=== PATIENT | male | born 1980 | race Caucasian/White ===

== ENCOUNTER 2023-11-30 14:29 | Emergency (ER) | payer BC, SELFPAY ==
[2023-11-30 14:37] VITALS: BP 196/105
[2023-11-30 14:47] VITALS: BP 178/107
[2023-11-30 14:54] LABS: % Immature Granulocytes 0.3 % (0-0.5); % Lymphocytes 35.4 % (20.5-51.1); % Monocytes 12.2 % (1.7-9.3); % Neutrophils 48.1 % (42.2-75.2); Absolute Basophils 0.1 10^3/uL (0-0.2); Absolute Eosinophils 0.3 10^3/uL (0-0.7); Absolute Lymphocytes 3.3 10^3/uL (1.2-3.4); Absolute Monocytes 1.1 10^3/uL (0.1-0.6); Absolute Neutrophils 4.5 10^3/uL (1.4-6.5); Hemoglobin 15.2 g/dL (13.0-18.0); Mean Corp Hgb Conc. 35.3 g/dL (33.0-37.0); Mean Corpuscular Hgb 30.7 pg (27.0-31.0); Mean Corpuscular Volume 86.9 fL (80.0-94.0); Mean Platelet Volume 10.7 fL (7.4-10.4); Nucleated Red Blood Cells % 0 % (-); Platelet Count 300 10^3/uL (130-400); Red Blood Cell Count 4.95 10^6/uL (4.70-6.10); White Blood Cell Count 9.4 10^3/uL (4.8-10.8)
[2023-11-30 14:55] LABS: Urine Albumin Negative (Neg - Trace); Urine Bilirubin Negative (Negative); Urine Character Clear (Clear); Urine Color Yellow; Urine Glucose Negative (Negative); Urine Ketone Negative (Negative); Urine Leukocyte Negative (Negative); Urine Nitrite Negative (Negative); Urine Occult Blood Negative (Negative); Urine Specific Gravity 1.015 (<1.030); Urine Urobilinogen Negative (Neg - 1+); Urine pH 6.5 (5.0-9.0)
[2023-11-30 15:16] LABS: ALT (SGPT) 33 U/L (0-50); AST (SGOT) 27 U/L (17-59); Albumin 4.3 g/dl (3.5-5.0); Alkaline Phosphatase 53 U/L (38-126); Blood Urea Nitrogen 8 mg/dl (9-20); Calcium 9.8 mg/dl (8.4-10.2); Carbon Dioxide 22 mmol/L (22-30); Chloride 107 mmol/L (98-107); Glucose 95 mg/dl (70-99); Lipase 75 U/L (23-300); Sodium 135 mmol/L (135-145); Total Bilirubin 0.6 mg/dl (0.2-1.3); Total Protein 7.2 g/dl (6.3-8.2); eGFR > 60.00
[2023-11-30 15:21] LABS: Potassium 4.2 mmol/L (3.5-5.1)
[2023-11-30 16:33] VITALS: BMI 47.1
[2023-11-30] MEDS: TORADOL 30 MG IV (18:31)
--- NOTE | 2023-11-30 19:15 | ED.GENMED ---
History of Present Illness
General
Chief Complaint: Abdominal Symptoms
Source: patient
Exam Limitations: none
Time Seen by Provider: 11/30/23 16:06
Nursing documentation reviewed up to this point in time: agreed with
Travel History
Have you had any contact with someone who has COVID-19?: No
Do you have any symptoms of coronavirus? Fever > 100 degrees, chills, cough, shortness of breath, sore throat, loss of taste or smell, muscle aches, or headache?: No
History of Present Illness
History of Present Illness:
43-year-old male with past medical history of hypertension presenting to the emergency department today with concerns of right lower quadrant abdominal discomfort lower abdominal discomfort over the past 2 days. Described as achy and persisting.
Denies vomiting or changes in bowel movements. Denies urinary symptoms denies fevers chest pain shortness of breath.
Past History
Past History
ED Past Medical History: None
ED Past Surgical History: None
Social History
Tobacco: Smoker
Alcohol: Occasional
Drug: None
Personal:
Living: with family
Employment: Employed
Family History
Family History: Other (Mother with hypertension, stroke, kidney issues)
Review of Systems
Review of Systems
Allergies reviewed?: Yes
All Other Systems: ROS reviewed and negative except as documented in HPI and ROS
Phy Exam
Physical Exam
Physical Exam:
GENERAL: Alert , in no apparent distress
EYE: pupils equal and reactive
NECK: Supple, no significant adenopathy.
ENT: o/p clr, mmm.
CARDIAC: Regular rate and rhythm .
LUNGS: Clear breath sounds bilaterally, no acute respiratory distress, no wheezes/rales/rhonchi
ABDOMEN: Lower abdominal discomfort tenderness palpation throughout the lower abdomen some of the suprapubic to the left lower and right lower.
NEUROLOGICAL: Alert and oriented, no focal neuro deficits
SKIN: Warm and dry, skin intact.
MUSCULOSKELETAL: No edema, well perfused.
PSYCH: Normal and appropriate interaction.
Course
Orders/Labs/Results
Orders:
Orders
11/30/23 14:46
Complete Blood Count/With Diff Urgent
Comprehensive Metabolic Panel Urgent
Lipase Urgent
Urinalysis Reflex To Culture Urgent
Date Specimen was Collected: 11/30/23
Time Specimen was Collected: 14:38
11/30/23 16:13
CT Abd/Pel (IV only)-DH only Urgent
Comment:
Reason For Exam: rlq pain
11/30/23 18:23
Ketorolac [Toradol] 30 mg IV NOW STA
11/30/23 19:14
Amoxicillin 875 mg/Clav 125 mg [Augmentin 875 mg/125 mg] 1 tablet PO NOW STA
Abnormal Lab Results
11/30/23
14:46
MPV 10.7 H fL
(7.4-10.4)
Absolute Monos (auto) 1.1 H 10^3/uL
(0.1-0.6)
Monocytes % 12.2 H %
(1.7-9.3)
BUN 8 L mg/dl
(9-20)
11/30/23 14:46
11/30/23 14:46
Vital Signs
Initial and Last Documented VS:
Initial Vital Signs
Temp Pulse Resp BP Pulse Ox
98.7 F 86 17 196/105 99
11/30/23 14:37 11/30/23 14:37 11/30/23 14:37 11/30/23 14:37 11/30/23 14:37
Last Documented Vital Signs
Temp Pulse Resp BP Pulse Ox
98.7 F 73 17 178/107 99
11/30/23 14:37 11/30/23 14:47 11/30/23 14:37 11/30/23 14:47 11/30/23 14:37
MDM/Problems Addressed
MDM/Problems Addressed:
43-year-old male presenting to the emergency department today with concerns of lower abdominal discomfort worsening over the past 2 days. Does have some mild tenderness to palpation throughout the lower abdomen. No guarding no peritoneal signs.
Blood pressure elevated here otherwise vital signs are normal afebrile. Labs without significant white count urinalysis normal. CT scan showing diverticulitis which could be potentially causing patient's symptoms. Plan for symptomatic treatment
and antibiotic treatment with close outpatient follow-up. Return precautions given.
*Critical Care Note
Total Time (30-74mins, 75-104mins- exclusive of procedures): Not Applicable
ED Attending Note
-
Portions of this chart may have been created with voice recognition software.� Occasional wrong word or��sound alike� substitutions may have occurred due to the inherent limitations of voice recognition software.
Discharge Plan
Departure
Patient Disposition: Home (Routine Discharge)
Date of Disposition: 11/30/23
Time of Disposition: 19:15
Patient with high blood pressure during this ER visit?: No
Condition: Good
Covid-19: Not Applicable
Discharge Problem:
Diverticulitis
Instructions: Diverticulitis (DC)
Prescriptions:
New
amoxicillin-pot clavulanate 875-125 mg tablet
1 tab PO BID 7 Days Qty: 14 0RF
No Action
cyclobenzaprine 10 mg Tablet
10 mg PO TIDPRN PRN (Reason: pain) Qty: 20 0RF
Referrals:
Hossein Partida DO [Family Provider] -
Activity Restrictions/Additional Instructions:
You came to the emergency department today with concerns of lower abdominal discomfort. You are found to have diverticulitis. Please slowly progress diet over the next few days and take Augmentin twice daily for the next 7 days and follow close
with the primary care doctor for further monitoring and reassessment. Return to the emergency department for any worsening, new or concerning symptoms.
Interventions
Interventions:
*General Assessment Last Done: 11/30/23 16:34
*Neglect/Abuse Screening Last Done: 11/30/23 16:34
ED- Fall Risk Assessment Last Done: 11/30/23 18:20
*ED COVID-19 Vaccine History Last Done: 11/30/23 16:34
RH-Dbnvde-Edhrbksbuw Assessment Last Done: 11/30/23 18:20
[2023-11-30] MEDS: AUGMENTIN 875 MG/125 MG 1 TABLET PO (19:40)
[2023-11-30 19:50] VITALS: BP 185/116
== END 2023-11-30 19:52 | disposition home or self-care (01) ==
LOC: EMR 14:29
PROVIDERS: Emergency Medicine; EMERGENCY PHYSICIAN Emergency Medicine; FAMILY PHYSICIAN Family Medicine
DX: K57.32 Diverticulitis of large intestine without perforation or abscess without bleeding (principal); F17.200 Nicotine dependence, unspecified, uncomplicated
CPT/HCPCS: 99285; 96374; 74177; 80053; 81003; 83690; 85025; Q9967

== ENCOUNTER 2024-02-20 11:47 | Emergency (ER) | payer BC, SELFPAY ==
[2024-02-20 11:48] VITALS: BMI 47.1
[2024-02-20 11:51] VITALS: BP 194/121
[2024-02-20 12:17] LABS: % Eosinophils 2.7 % (0-6); % Immature Granulocytes 0.4 % (0-0.5); % Lymphocytes 34.7 % (20.5-51.1); % Neutrophils 52.2 % (42.2-75.2); Absolute Basophils 0.1 10^3/uL (0-0.2); Absolute Eosinophils 0.2 10^3/uL (0-0.7); Absolute Lymphocytes 2.8 10^3/uL (1.2-3.4); Absolute Monocytes 0.7 10^3/uL (0.1-0.6); Absolute Neutrophils 4.2 10^3/uL (1.4-6.5); Hematocrit 41.6 % (39.0-52.0); Hemoglobin 14.6 g/dL (13.0-18.0); Mean Corp Hgb Conc. 35.1 g/dL (33.0-37.0); Mean Corpuscular Hgb 30.5 pg (27.0-31.0); Mean Platelet Volume 10.9 fL (7.4-10.4); Nucleated Red Blood Cells % 0 % (-); Platelet Count 290 10^3/uL (130-400); Red Blood Cell Count 4.78 10^6/uL (4.70-6.10); White Blood Cell Count 8.1 10^3/uL (4.8-10.8)
[2024-02-20 12:29] LABS: ALT (SGPT) 31 U/L (0-50); AST (SGOT) 26 U/L (17-59); Albumin 4.2 g/dl (3.5-5.0); Alkaline Phosphatase 53 U/L (38-126); Blood Urea Nitrogen 12 mg/dl (9-20); Calcium 9.3 mg/dl (8.4-10.2); Carbon Dioxide 23 mmol/L (22-30); Chloride 106 mmol/L (98-107); Glucose 104 mg/dl (70-99); Potassium 4.3 mmol/L (3.5-5.1); Sodium 134 mmol/L (135-145); Total Bilirubin 0.5 mg/dl (0.2-1.3); Total Protein 7.1 g/dl (6.3-8.2); eGFR > 60.00
[2024-02-20 14:27] VITALS: BP 166/108
--- NOTE | 2024-02-20 16:20 | ED.GENMED ---
History of Present Illness
General
Chief Complaint: Abdominal Pain
Source: patient
Exam Limitations: none
Time Seen by Provider: 02/20/24 13:38
Travel History
Have you had any contact with someone who has COVID-19?: No
Do you have any symptoms of coronavirus? Fever > 100 degrees, chills, cough, shortness of breath, sore throat, loss of taste or smell, muscle aches, or headache?: No
History of Present Illness
History of Present Illness:
43-year-old male who presents after he noticed some blood in the stool. Patient first noticed when he wiped and then noticed blood in the toilet. Blood was bright red. Does have some left abdominal pain as well and has a history of
diverticulitis. Patient was sent by PCP. Patient denies any other complaints. States he has not had his blood pressure checked in some time. Also admits that he has had no lightheadedness, chest pain, shortness of breath or syncope.
Past History
Past History
ED Past Medical History: None
ED Past Surgical History: Orthopedic
Social History
Tobacco: Smoker
Alcohol: Occasional
Drug: None
Personal:
Living: with family
Employment: Employed
Family History
Family History: Other (Mother with hypertension, stroke, kidney issues)
Phy Exam
Physical Exam
Physical Exam:
CONSTITUTIONAL Patient alert and oriented to person, place and time. Well-appearing. Vital signs reviewed. Obese
HEAD atraumatic, normocephalic.
EYES eyelids normal to inspection, Pupils equally round and reactive to light, Extraocular muscles intact, Conjunctiva normal, Sclera normal.
NECK normal range of motion, Trachea midline, no jugular venous distention.
RESPIRATORY CHEST No respiratory distress noted, Chest expansion equal, Bilateral breath sounds clear.
CARDIOVASCULAR regular rate and rhythm, Heart sounds normal.
ABDOMEN mild left lower, Bowel sounds normal. No distention.
Rectal exam hemorrhoids noted. No blood on rectal exam.
BACK normal inspection, no obvious deformities
UPPER EXTREMITY range of motion normal, Motor strength normal, no cyanosis, no edema.
LOWER EXTREMITY range of motion normal, Motor strength normal, no cyanosis, no edema.
NEURO Speech normal, No focal motor deficits, Sahil coma scale 15, Memory normal, Cranial Nerves intact to screening exam.
SKIN skin warm, dry, and normal in color.
PSYCHIATRIC patient oriented to person place and time, Normal affect.
Course
Orders/Labs/Results
Orders:
Orders
02/20/24 12:02
CMP [Comprehensive Metabolic Panel] Urgent
Complete Blood Count/With Diff Urgent
02/20/24 14:03
CT Abd/pelvis W Iv Cont Urgent
Comment:
Reason For Exam: LLQ pain, h/o diverticulitis
Abnormal Lab Results
02/20/24
12:02
MPV 10.9 H fL
(7.4-10.4)
Absolute Monos (auto) 0.7 H 10^3/uL
(0.1-0.6)
Sodium 134 L mmol/L
(135-145)
Glucose 104 H mg/dl
(70-99)
02/20/24 12:02
02/20/24 12:02
Vital Signs
Initial and Last Documented VS:
Initial Vital Signs
Temp Pulse Resp BP Pulse Ox
98.0 F 81 18 194/121 96
02/20/24 11:51 02/20/24 11:51 02/20/24 11:51 02/20/24 11:51 02/20/24 11:51
Last Documented Vital Signs
Temp Pulse Resp BP Pulse Ox
98.0 F 71 16 166/104 95
02/20/24 11:51 02/20/24 16:24 02/20/24 16:24 02/20/24 16:24 02/20/24 16:24
MDM/Problems Addressed
MDM/Problems Addressed:
Hemorrhoids, GI bleeding, uncontrolled hypertension, obesity
*Radiology
Radiology exam reviewed: preliminary read by ED provider (No obvious free air) and radiology read reviewed
*Pulse Oximetry
Patient hypoxic: no
*Critical Care Note
Total Time (30-74mins, 75-104mins- exclusive of procedures): Not Applicable
Data Reviewed
Source: patient
Prescriptions/Medications Considered But Not Given:
Considered antibiotics but no evidence of acute diverticulitis
Patient Management
Escalation/DeEscalation of care consider admission/obs:
She is appears well. Patient counseled on the importance of exercise, weight loss and blood pressure control. Patient was also counseled importance of smoking cessation. Suspect blood that he noticed was hemorrhoidal as hemoglobin is normal and
does have large hemorrhoids. Recommend close outpatient GI and PCP follow-up
ED Attending Note
-
Portions of this chart may have been created with voice recognition software.� Occasional wrong word or��sound alike� substitutions may have occurred due to the inherent limitations of voice recognition software.
Discharge Plan
Departure
Patient Disposition: Home (Routine Discharge)
Date of Disposition: 02/20/24
Time of Disposition: 16:20
Patient with high blood pressure during this ER visit?: Yes
Discharge Problem:
Bright red rectal bleeding, Hemorrhoid
Instructions: Hemorrhoids, Bloody Stools, Adult (DC), Abdominal Pain, BLOOD PRESSURE
Prescriptions:
New
lisinopril 20 mg tablet
20 mg PO DAILY Qty: 60 0RF
No Action
cyclobenzaprine 10 mg Tablet
10 mg PO TIDPRN PRN (Reason: pain) Qty: 20 0RF
amoxicillin-pot clavulanate 875-125 mg tablet
1 tab PO BID 7 Days Qty: 14 0RF
Referrals:
Sydnie Sanz MD [Active] -
Activity Restrictions/Additional Instructions:
Please see your doctor or gastroenterology in the next 3 days for follow-up and reevaluation. Your blood pressure was elevated while in the Emergency Department, please have your doctor re-evaluate it in the next 48 hours as untreated hypertension
may lead to serious complications.
Return visit for worsening pain, increased bleeding, vomiting, weakness of any kind or any other concerns. Please use warm baths to soak. Please keep stools soft. Do not strain.
Interventions
Interventions:
*Risk Screen - Suicide Last Done: 02/20/24 14:28
*General Assessment Last Done: 02/20/24 14:28
*Neglect/Abuse Screening Last Done: 02/20/24 14:28
*ED COVID-19 Vaccine History Last Done: 02/20/24 14:27
*Nursing Disposition Last Done: 02/20/24 17:00
ZT-Hotuyj-Rmjmhszysh Assessment Last Done: 02/20/24 14:27
Discharge Date and Time
Discharge Date/Time: 02/20/24 17:01
Print Language: KAZAKH
[2024-02-20 16:24] VITALS: BP 166/104
== END 2024-02-20 17:01 | disposition home or self-care (01) ==
LOC: EMR 11:47
PROVIDERS: Emergency Medicine; EMERGENCY PHYSICIAN Emergency Medicine; FAMILY PHYSICIAN Family Medicine
DX: K92.1 Melena (principal); K64.9 Unspecified hemorrhoids; E66.9 Obesity, unspecified; I10 Essential (primary) hypertension; F17.200 Nicotine dependence, unspecified, uncomplicated; Z82.3 Family history of stroke; Z82.49 Family history of ischemic heart disease and other diseases of the circulatory system
CPT/HCPCS: 99284; 74177; 80053; 85025; Q9967

== ENCOUNTER 2024-06-07 09:13 | Emergency (ER) | payer BC, SELFPAY ==
[2024-06-07 09:25] VITALS: BP 131/99
[2024-06-07 09:43] VITALS: BMI 46.0
[2024-06-07 09:54] VITALS: BP 148/101
[2024-06-07 10:00] VITALS: BP 146/104
[2024-06-07 10:02] LABS: % Eosinophils 1.7 % (0-6); % Immature Granulocytes 0.4 % (0-0.5); % Lymphocytes 32.5 % (20.5-51.1); % Neutrophils 57.4 % (42.2-75.2); Absolute Basophils 0.1 10^3/uL (0-0.2); Absolute Eosinophils 0.1 10^3/uL (0-0.7); Absolute Lymphocytes 2.3 10^3/uL (1.2-3.4); Absolute Monocytes 0.5 10^3/uL (0.1-0.6); Absolute Neutrophils 4.1 10^3/uL (1.4-6.5); Hematocrit 42.2 % (39.0-52.0); Hemoglobin 14.8 g/dL (13.0-18.0); Mean Corp Hgb Conc. 35.1 g/dL (33.0-37.0); Mean Corpuscular Hgb 31.3 pg (27.0-31.0); Mean Corpuscular Volume 89.2 fL (80.0-94.0); Mean Platelet Volume 10.9 fL (7.4-10.4); Nucleated Red Blood Cells % 0 % (-); Platelet Count 276 10^3/uL (130-400); Red Blood Cell Count 4.73 10^6/uL (4.70-6.10); Red Cell Dist. Width 12.8 % (11.5-14.5); White Blood Cell Count 7.2 10^3/uL (4.8-10.8)
[2024-06-07 10:32] LABS: ALT (SGPT) 28 U/L (0-50); AST (SGOT) 24 U/L (17-59); Albumin 4.2 g/dl (3.5-5.0); Alkaline Phosphatase 48 U/L (38-126); Blood Urea Nitrogen 11 mg/dl (9-20); Calcium 9.6 mg/dl (8.4-10.2); Carbon Dioxide 25 mmol/L (22-30); Chloride 107 mmol/L (98-107); Estimated Creatinine Clearance > 125 ml/min; Glucose 118 mg/dl (70-99); Lipase 61 U/L (23-300); Potassium 4.4 mmol/L (3.5-5.1); Sodium 137 mmol/L (135-145); Total Bilirubin 0.5 mg/dl (0.2-1.3); Total Protein 6.6 g/dl (6.3-8.2); eGFR > 60.00
--- NOTE | 2024-06-07 10:50 | ED.GENMED ---
History of Present Illness
General
Chief Complaint: Abdominal Pain
Source: patient
Exam Limitations: none
Time Seen by Provider: 06/07/24 09:40
Nursing documentation reviewed up to this point in time: agreed with
History of Present Illness
History of Present Illness:
Patient presents to ED secondary to persistent left-sided abdominal pain over the past 2 weeks. Patient spoke with his primary care physician and was started on antibiotics, secondary to his previous history of diverticulitis. Since then,
abdominal pain has persisted, but over the past 12 hours, patient has had 4 episodes of bloody bowel movements. Denies fever or chills. Patient reports nausea without vomiting sensation. Patient feels generalized fatigue with weakness. There is
family history of malignancy as well as inflammatory bowel disease. Patient has not had any recent colonoscopy.
Past History
Past History
ED Past Medical History: None
ED Past Surgical History: Orthopedic
Social History
Tobacco: Smoker
Alcohol: Occasional
Drug: None
Personal:
Living: with family
Employment: Employed
Family History
Family History: Other (Mother with hypertension, stroke, kidney issues)
Review of Systems
Review of Systems
Allergies reviewed?: Yes
All Other Systems: ROS reviewed and negative except as documented in HPI and ROS
Constitutional: Reports no symptoms
Respiratory: Reports no symptoms
Cardiac: Reports no symptoms
ABD/GI: Reports abdominal pain, nausea and bloody stools; Denies vomiting
Musculoskeletal: Reports no symptoms
Skin: Reports no symptoms
Neurological: Reports weakness
Phy Exam
Physical Exam
Physical Exam:
Physical Exam
General: mild painful distress, not acutely ill. afebrile
Head: nc/at. eomi
Neck: supple. no meningeal signs.
Heart: s1/s2 regular rate and rhythm, no murmur. equal radial pulses.
Lungs: no acute respiratory distress. clear bilaterally
Abdomen: normal bowel sounds. not tender.
Neuro: alert and oriented. no focal neurological deficits
Skin: no rash
Psychiatric: well kept. interactive and cooperative
Extremities: no edema. no calf tenderness.
Course
Orders/Labs/Results
Orders:
Orders
06/07/24 09:55
Type+Screen Urgent
Complete Blood Count/With Diff Urgent
Comprehensive Metabolic Panel Urgent
Lipase Urgent
06/07/24 10:31
CT Abd/pelvis W Iv Cont Urgent
Comment:
Reason For Exam: LLQ pain with bloody BM
0.9% Sodium Chloride 1000 ml [Nss] 1,000 ml IV BOLUS
Ondansetron Injectable [Zofran] 4 mg IV NOW STA
Abnormal Lab Results
06/07/24
09:55
MCH 31.3 H pg
(27.0-31.0)
MPV 10.9 H fL
(7.4-10.4)
Glucose 118 H mg/dl
(70-99)
06/07/24 09:55
06/07/24 09:55
Vital Signs
Initial and Last Documented VS:
Initial Vital Signs
Temp Pulse Resp BP Pulse Ox
97.4 F 73 18 131/99 97
06/07/24 09:25 06/07/24 09:25 06/07/24 09:25 06/07/24 09:25 06/07/24 09:25
Last Documented Vital Signs
Temp Pulse Resp BP Pulse Ox
97.4 F 66 14 139/113 95
06/07/24 09:25 06/07/24 13:30 06/07/24 13:30 06/07/24 13:29 06/07/24 13:15
MDM/Problems Addressed
MDM/Problems Addressed:
CT report reviewed and discussed with patient. No evidence diverticulitis noted, but suggestive of enteritis, which may explain patient's current presenting symptoms, including bowel movements, mixed with blood. Advised hydration at home, along
with PCP/GI physician for outpatient consultation. If bloody bowel movements continue beyond the next 24 to 48 hours, or develop any symptoms concerning for an acute blood loss, i.e. dizziness/weakness/shortness of breath, advised to return to ED
for reevaluation. Patient expresses understanding at time of discharge.
*Critical Care Note
Total Time (30-74mins, 75-104mins- exclusive of procedures): Not Applicable
ED Attending Note
-
Portions of this chart may have been created with voice recognition software.� Occasional wrong word or��sound alike� substitutions may have occurred due to the inherent limitations of voice recognition software.
Discharge Plan
Departure
Patient Disposition: Home (Routine Discharge)
Date of Disposition: 06/07/24
Time of Disposition: 13:23
Patient with high blood pressure during this ER visit?: Yes
Discharge Problem:
Enteritis
Instructions: Bloody Stools, Adult ED
Prescriptions:
No Action
lisinopril 20 mg tablet
20 mg PO DAILY Qty: 60 0RF
Referrals:
Hossein Partida DO [Family Provider] -
Sarah Elam DO [Active] -
Activity Restrictions/Additional Instructions:
As discussed, please follow-up with your primary care physician and/or referred GI physician for further evaluation and treatment.
Interventions
Interventions:
*Risk Screen - Suicide Last Done: 06/07/24 09:26
*General Assessment Last Done: 06/07/24 09:26
*Neglect/Abuse Screening Last Done: 06/07/24 09:26
ED- Fall Risk Assessment Last Done: 06/07/24 10:09
*ED COVID-19 Vaccine History Last Done: 06/07/24 10:09
*Nursing Disposition Last Done: 06/07/24 13:31
JX-Hchyky-Ludzxvkeug Assessment Last Done: 06/07/24 10:09
ED- Cardiac Assessment Last Done: 06/07/24 10:09
ED- Pulmonary Assessment Last Done: 06/07/24 10:09
Discharge Date and Time
Discharge Date/Time: 06/07/24 13:33
Print Language: MICRONESIAN
[2024-06-07] MEDS: ZOFRAN 4 MG IV (10:52)
[2024-06-07] MEDS: NSS 1000 IV (10:52)
[2024-06-07 11:00] VITALS: BP 143/83
[2024-06-07 12:00] VITALS: BP 137/91
[2024-06-07 13:29] VITALS: BP 139/113
== END 2024-06-07 13:33 | disposition home or self-care (01) ==
LOC: EMR 09:13
PROVIDERS: EMERGENCY PHYSICIAN Emergency Medicine; FAMILY PHYSICIAN Family Medicine
DX: K52.9 Noninfective gastroenteritis and colitis, unspecified (principal); R10.9 Unspecified abdominal pain; F17.200 Nicotine dependence, unspecified, uncomplicated; Z82.3 Family history of stroke; Z82.49 Family history of ischemic heart disease and other diseases of the circulatory system
CPT/HCPCS: 99284; 96374; 96361; 74177; 80053; 83690; 85025; 86850; 86900; 86901; Q9967

== ENCOUNTER 2024-09-03 10:22 | Emergency (ER) | payer BC, SELFPAY ==
[2024-09-03 10:36] VITALS: BP 156/111
[2024-09-03 10:37] LABS: Urine Albumin Negative (Neg - Trace); Urine Bilirubin Negative (Negative); Urine Character Clear (Clear); Urine Color Yellow; Urine Glucose Negative (Negative); Urine Ketone Negative (Negative); Urine Leukocyte Negative (Negative); Urine Nitrite Negative (Negative); Urine Occult Blood Negative (Negative); Urine Specific Gravity 1.005 (<1.030); Urine Urobilinogen Negative (Neg - 1+)
[2024-09-03 10:52] LABS: % Basophils 0.9 % (0-2); % Eosinophils 2.3 % (0-6); % Immature Granulocytes 0.3 % (0-0.5); % Lymphocytes 39.6 % (20.5-51.1); % Monocytes 8.2 % (1.7-9.3); % Neutrophils 48.7 % (42.2-75.2); Absolute Basophils 0.1 10^3/uL (0-0.2); Absolute Eosinophils 0.2 10^3/uL (0-0.7); Absolute Monocytes 0.6 10^3/uL (0.1-0.6); Absolute Neutrophils 3.7 10^3/uL (1.4-6.5); Hematocrit 41.7 % (39.0-52.0); Hemoglobin 14.8 g/dL (13.0-18.0); Mean Corp Hgb Conc. 35.5 g/dL (33.0-37.0); Mean Corpuscular Hgb 31.3 pg (27.0-31.0); Mean Corpuscular Volume 88.2 fL (80.0-94.0); Mean Platelet Volume 10.8 fL (7.4-10.4); Nucleated Red Blood Cells % 0 % (-); Platelet Count 281 10^3/uL (130-400); Red Blood Cell Count 4.73 10^6/uL (4.70-6.10); Red Cell Dist. Width 12.9 % (11.5-14.5); White Blood Cell Count 7.7 10^3/uL (4.8-10.8)
[2024-09-03 11:02] LABS: ALT (SGPT) 27 U/L (0-50); AST (SGOT) 23 U/L (17-59); Alkaline Phosphatase 47 U/L (38-126); Blood Urea Nitrogen 12 mg/dl (9-20); Calcium 9.5 mg/dl (8.4-10.2); Carbon Dioxide 20 mmol/L (22-30); Chloride 105 mmol/L (98-107); Glucose 110 mg/dl (70-99); Lipase 72 U/L (23-300); Sodium 138 mmol/L (135-145); Total Bilirubin 0.5 mg/dl (0.2-1.3); Total Protein 7.1 g/dl (6.3-8.2); eGFR > 60.00
--- NOTE | 2024-09-03 11:08 | ED.GENMED ---
History of Present Illness
General
Chief Complaint: Abdominal Symptoms
Source: patient
Exam Limitations: none
Time Seen by Provider: 09/03/24 11:01
History of Present Illness
History of Present Illness:
44-year-old male presents complaining of 3 days worth of worsening left lower quadrant abdominal pain with associated blood in the stool. He has a history of diverticulitis. This feels very similar. No fever or vomiting. Seen by family doctor
today and sent here for further evaluation. No prior history of abscess formation or perforation with his diverticulitis.
Past History
Past History
ED Past Medical History: None
ED Past Surgical History: Orthopedic
Social History
Tobacco: Smoker
Alcohol: Occasional
Drug: None
Personal:
Living: with family
Employment: Employed
Family History
Family History: Other (Mother with hypertension, stroke, kidney issues)
Phy Exam
Physical Exam
Physical Exam:
General: Well-appearing male no acute respiratory distress
Abdomen: Soft tender to left lower quadrant and suprapubic area. No guarding rebound normal bowel sounds
Heart: Regular rate and rhythm no murmurs
Lungs: Clear no wheeze
Course
Orders/Labs/Results
Orders:
Orders
09/03/24 10:27
Urinalysis Reflex To Culture Urgent
Date Specimen was Collected: 09/03/24
Time Specimen was Collected: 10:25
09/03/24 10:42
Complete Blood Count/With Diff Urgent
09/03/24 10:43
Comprehensive Metabolic Panel Urgent
Lipase Urgent
09/03/24 11:07
CT Abd/pelvis W Iv Cont Urgent
Comment:
Reason For Exam: LLQ pain
Abnormal Lab Results
09/03/24 09/03/24
10:42 10:43
MCH 31.3 H pg
(27.0-31.0)
MPV 10.8 H fL
(7.4-10.4)
Carbon Dioxide 20 L mmol/L
(22-30)
Glucose 110 H mg/dl
(70-99)
09/03/24 10:42
09/03/24 10:43
Vital Signs
Initial and Last Documented VS:
Initial Vital Signs
Temp Pulse Resp BP Pulse Ox
98.0 F 85 16 156/111 98
09/03/24 10:36 09/03/24 10:36 09/03/24 10:36 09/03/24 10:36 09/03/24 10:36
Last Documented Vital Signs
Temp Pulse Resp BP Pulse Ox
98.0 F 85 16 145/95 97
09/03/24 10:36 09/03/24 10:36 09/03/24 10:36 09/03/24 12:00 09/03/24 12:30
MDM/Problems Addressed
Differential Diagnosis Includes:
Left lower abdominal pain with history of diverticulitis. Consider recurrent diverticulitis versus abscess versus perforation versus bowel obstruction versus renal colic
Labs ordered through triage which I reviewed demonstrate normal white count and urinalysis is negative. CT with IV contrast pending
*Critical Care Note
Total Time (30-74mins, 75-104mins- exclusive of procedures): Not Applicable
Update Note
Update Note:
CT demonstrates mild acute diverticulitis of the sigmoid colon. No evidence of perforation or abscess. White count normal afebrile looks nontoxic. He had good results with Augmentin last time. Will prescribe the same. Stable for discharge
ED Attending Note
-
Portions of this chart may have been created with voice recognition software.� Occasional wrong word or��sound alike� substitutions may have occurred due to the inherent limitations of voice recognition software.
Discharge Plan
Departure
Patient Disposition: Home (Routine Discharge)
Date of Disposition: 09/03/24
Time of Disposition: 13:43
Patient with high blood pressure during this ER visit?: No
Discharge Problem:
Acute diverticulitis
Instructions: Diverticulitis (DC)
Prescriptions:
New
amoxicillin-pot clavulanate 875-125 mg tablet
1 tab PO BID Qty: 20 0RF
No Action
lisinopril 20 mg tablet
20 mg PO DAILY Qty: 60 0RF
acetaminophen [Tylenol Extra Strength] 500 mg Tablet
1,000 mg PO Q6HPRN PRN (Reason: mild pain)
Referrals:
Hossein Partida DO [Family Provider] -
Activity Restrictions/Additional Instructions:
Drink plenty clear liquids. Use antibiotics as directed peer return if worse otherwise follow-up with your doctor
Interventions
Interventions:
*Risk Screen - Suicide Last Done: 09/03/24 10:36
*General Assessment Last Done: 09/03/24 11:14
*Neglect/Abuse Screening Last Done: 09/03/24 10:36
*ED COVID-19 Vaccine History Last Done: 09/03/24 11:14
BE-Cvstrz-Jqzsakciuk Assessment Last Done: 09/03/24 11:33
Discharge Date and Time
Print Language: [email or web address]
[2024-09-03 11:13] VITALS: BMI 46.9
[2024-09-03 11:15] VITALS: BP 142/103
[2024-09-03 12:00] VITALS: BP 145/95
[2024-09-03 12:01] LABS: Albumin 4.5 g/dl (3.5-5.0)
== END 2024-09-03 13:56 | disposition home or self-care (01) ==
LOC: EMR 10:22
PROVIDERS: Emergency Medicine; EMERGENCY PHYSICIAN Student in an Organized Health Care Education/Training Program; FAMILY PHYSICIAN Family Medicine
DX: K57.32 Diverticulitis of large intestine without perforation or abscess without bleeding (principal); F17.200 Nicotine dependence, unspecified, uncomplicated
CPT/HCPCS: 99284; 74177; 80053; 81003; 83690; 85025; Q9967

== ENCOUNTER → 2025-07-12 11:13 | Outpatient (REF) | payer BC, SELFPAY | LOC: RAD 11:13 | PROVIDERS: ATTENDING PHYSICIAN Family Medicine; FAMILY PHYSICIAN Family Medicine | DX: R07.89 Other chest pain (principal) | CPT/HCPCS: 71046 ==